=== PATIENT | female | born 1975 | race Native Hawaiian/Other Pacific Islander ===

== ENCOUNTER 2017-05-28 13:49 | Outpatient (CLI) | payer OTHER | END 2017-05-28 14:00 | disposition short-term general hospital (02) | LOC: AMB 13:49 | DX: R29.810 Facial weakness (principal); G81.91 Hemiplegia, unspecified affecting right dominant side; R41.82 Altered mental status, unspecified | CPT/HCPCS: A0425; A0427 ==

== ENCOUNTER 2017-05-28 13:59 | Observation (INO) | payer OTHER ==
[2017-05-28] VITALS (16 sets, daily range): BP systolic 120–169; BP diastolic 50–84; TEMP 97.8–99.7; Ht 165.1 cm; Wt 77.3 kg
[~2017-05-28] VITALS: Ht 165.1 cm; Wt 77.3 kg
[2017-05-28 14:43] LABS: PLATELET COUNT 246 K/uL (152-353)
[2017-05-28 14:47] LABS: POTASSIUM 4.7 mmol/L (3.6-5.2); SODIUM 137 mmol/L (136-145)
[2017-05-29 01:00] VITALS: BP 132/102; TEMP 100.1
[2017-05-29 02:52] LABS: PLATELET COUNT 256 K/uL (152-353)
[2017-05-29 02:58] LABS: POTASSIUM 4.3 mmol/L (3.6-5.2); SODIUM 137 mmol/L (136-145)
[2017-05-29 03:20] VITALS: BP 126/72; TEMP 99.7
[2017-05-29 04:30] VITALS: BP 136/72
[2017-05-29 05:30] VITALS: BP 130/84
[2017-05-29 06:15] VITALS: BP 142/87
== END 2017-05-29 06:35 | disposition short-term general hospital (02) ==
LOC: ED 13:59 → EDBD 13:59 → ICU 17:14
PROVIDERS: ADMIT Emergency Medicine
PROC: 5A1935Z Respiratory Ventilation, Less than 24 Consecutive Hours (ICD-10-PCS; principal; 2017-05-29)
PROC: 0BH17EZ Insertion of Endotracheal Airway into Trachea, Via Natural or Artificial Opening (ICD-10-PCS; 2017-05-29)
DX: I63.512 Cerebral infarction due to unspecified occlusion or stenosis of left middle cerebral artery (principal); I63.522 Cerebral infarction due to unspecified occlusion or stenosis of left anterior cerebral artery; J69.0 Pneumonitis due to inhalation of food and vomit; R41.82 Altered mental status, unspecified
CPT/HCPCS: 31500; 36415; 36600; 51702; 80053; 80307; 80320; 81000; 82550; 82805; 83605; 83735; 84484; 85027; 85610; 87040; 93005; 94003; 96365; 96375; 96376; 99220; 99285; G0378; G0479; J0330; J1720; J2060; J2405; Q2009

== ENCOUNTER 2017-05-29 06:33 | Outpatient (CLI) | payer OTHER | END 2017-05-29 07:58 | disposition short-term general hospital (02) | LOC: AMB 06:33 | DX: I63.512 Cerebral infarction due to unspecified occlusion or stenosis of left middle cerebral artery (principal); I63.522 Cerebral infarction due to unspecified occlusion or stenosis of left anterior cerebral artery; J69.0 Pneumonitis due to inhalation of food and vomit; R41.82 Altered mental status, unspecified | CPT/HCPCS: A0425; A0427 ==